=== PATIENT | male | born 1995 | race African-American/Black ===

== ENCOUNTER → 2021-02-04 | Outpatient (CLI) | payer OTHER ==
[2021-02-04 08:16] LABS: BASO % 0.9 % (0.0-1.0); EOS # 0.1 10^3/uL (0.0-0.5); EOS % 1.7 % (0.0-3.0); HEMOGLOBIN 14.3 g/dl (13.5-17.5); LYMPH # 1.3 10^3/uL (1.5-5.0); LYMPH % 36.2 % (24.0-44.0); MEAN CORPUSCULAR HEMOGLOBIN 30.2 pg (27.0-33.0); MEAN CORPUSCULAR HGB CONC 32.5 g/dl (32.0-36.5); MONO # 0.4 10^3/uL (0.0-0.8); MONO % 10.7 % (2.0-8.0); NEUTROPHILS # 1.7 10^3/uL (1.5-8.5); NEUTROPHILS % 49.9 % (36.0-66.0); PLATELET COUNT, AUTOMATED 187 10^3/uL (150-450); RED BLOOD COUNT 4.73 10^6/uL (4.30-6.10); WHITE BLOOD COUNT 3.5 10^3/uL (4.0-10.0)
[2021-02-04 08:47] LABS: ALBUMIN 3.9 GM/DL (3.2-5.2); ALT/SGPT 40 U/L (12-78); BILIRUBIN,DIRECT 0.3 MG/DL (0.0-0.2); BLOOD UREA NITROGEN 16 MG/DL (7-18); CREATININE FOR GFR 1.31 MG/DL (0.70-1.30); GLOMERULAR FILTRATION RATE > 60.0 (>60); TOTAL PROTEIN 7.4 GM/DL (6.4-8.2)
== END ==
LOC: M LAB 07:44
PROVIDERS: ATTEND Internal Medicine Gastroenterology
DX: K58.8 Other irritable bowel syndrome (principal)

== ENCOUNTER → 2021-02-05 | Outpatient (REF) | payer OTHER | LOC: M LAB REF 10:07 | PROVIDERS: ATTEND Internal Medicine Gastroenterology | DX: K58.8 Other irritable bowel syndrome (principal) ==

== ENCOUNTER → 2021-04-14 | Outpatient (REF) | payer OTHER | LOC: M LAB REF 08:14 | PROVIDERS: ATTEND Internal Medicine Gastroenterology | DX: K58.8 Other irritable bowel syndrome (principal) ==

== ENCOUNTER 2021-05-07 09:53 | Emergency (ER) | payer OTHER ==
[~2021-05-07] VITALS: Ht 167.6 cm; Wt 71.3 kg
[2021-05-07] MEDS ORDERED: GABA-283 PO (09:58)
[2021-05-07] MEDS ORDERED: AMIT25TA17 PO (09:58)
[2021-05-07 11:17] LABS: HEMATOCRIT 43.6 % (42.0-52.0); HEMOGLOBIN 14.8 g/dl (13.5-17.5); MEAN CORPUSCULAR HEMOGLOBIN 30.9 pg (27.0-33.0); MEAN CORPUSCULAR HGB CONC 33.9 g/dl (32.0-36.5); PLATELET COUNT, AUTOMATED 209 10^3/uL (150-450); RED BLOOD COUNT 4.79 10^6/uL (4.30-6.10); WHITE BLOOD COUNT 6.8 10^3/uL (4.0-10.0)
[2021-05-07] MEDS ORDERED: KETOROLAC 30 MG/ML 1ML VIAL IV ONE (11:25)
[2021-05-07 11:45] LABS: ALBUMIN 4.3 GM/DL (3.2-5.2); ALT/SGPT 46 U/L (12-78); BILIRUBIN,DIRECT 0.2 MG/DL (0.0-0.2); BILIRUBIN,TOTAL 0.8 MG/DL (0.2-1.0); TOTAL PROTEIN 7.4 GM/DL (6.4-8.2)
[2021-05-07 12:05] LABS: BLOOD UREA NITROGEN 16 MG/DL (7-18); CALCIUM LEVEL 9.1 MG/DL (8.5-10.1); CARBON DIOXIDE LEVEL 28 MEQ/L (21-32); CHLORIDE LEVEL 108 MEQ/L (98-107); CREATININE FOR GFR 1.55 MG/DL (0.70-1.30); GLOMERULAR FILTRATION RATE > 60.0 (>60); GLUCOSE, FASTING 122 MG/DL (70-100); POTASSIUM SERUM 4.1 MEQ/L (3.5-5.1); SODIUM LEVEL 139 MEQ/L (136-145)
[2021-05-07] MEDS ORDERED: ISOVUE-370 76% 100ML VIAL As Ordered ONE (12:11)
[2021-05-07] MEDS ORDERED: TAMSULOSIN 0.4 MG CAP PO ONE (13:20)
[2021-05-07] MEDS ORDERED: NS 1,000 ML IV ONE (13:20)
[2021-05-07] MEDS ORDERED: OXYC1TAB23 PO (13:28)
[2021-05-07] MEDS ORDERED: KETO10TAB PO (13:29)
[2021-05-07] MEDS ORDERED: FLOM0.4C39 PO (13:36)
[2021-05-07 14:47] VITALS: BP 128/60
== END 2021-05-07 15:11 | disposition home or self-care (01) ==
LOC: M ED 09:53
DX: N20.1 Calculus of ureter (principal); N13.39 Other hydronephrosis; R79.89 Other specified abnormal findings of blood chemistry; M54.9 Dorsalgia, unspecified; G43.909 Migraine, unspecified, not intractable, without status migrainosus; Z79.899 Other long term (current) drug therapy
CPT/HCPCS: 74177; 80048; 80076; 81001; 85027; 96374; 99284; J1885; Q9967

== ENCOUNTER → 2021-05-09 | Outpatient (CLI) | payer OTHER ==
[~2021-05-09] MED LIST: AMIT25TA17 PO; FLOM0.4C39 PO; GABA-283 PO; KETO10TAB PO; OXYC1TAB23 PO
[2021-05-09 09:12] LABS: CREATININE FOR GFR 1.21 MG/DL (0.70-1.30); GLOMERULAR FILTRATION RATE > 60.0 (>60)
== END ==
LOC: M LAB 08:16
PROVIDERS: ATTEND Physician Assistant
DX: Z00.00 Encounter for general adult medical examination without abnormal findings (principal)